=== PATIENT | male | born 1960 ===

== ENCOUNTER 2018-01-09 16:47 | Emergency (ER) | payer BC, OTHER ==
[2018-01-09 16:58] VITALS: BMI 29.8
--- NOTE | 2018-01-09 19:46 | C.PDOC ---
History Of Present Illness 57 year old male presents to the ED c/o severe left shoulder pain. 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 Patient states he occasionally feels a strain in his shoulder but usually is able to keep working. Patient states he woke yo today with severe pain of his left shoulder over the left shoulder mostly over the humeral head area. Patient reports he took Naproxen today, last one a 11:00 am with no relief. Patient worsens with movement and while laying down. Patient denies fall , direct trauma, weakness, numbness, tingling, CP, SOB. Time Seen by Provider: 01/09/18 19:03 Chief Complaint (Nursing): Upper Extremity Problem/Injury History Per: Patient History/Exam Limitations: no limitations Onset/Duration Of Symptoms: Hrs Current Symptoms Are (Timing): Still Present Quality: "Pain" Severity: Severe Exacerbating Factor(s): Movement Recent travel outside of the [place]: No Additional History Per: Patient Past Medical History Reviewed: Historical Data, Nursing Documentation, Vital Signs Vital Signs: Last Vital Signs Temp 98.5 F 01/09/18 20:09 Pulse 56 L 01/09/18 20:09 Resp 16 01/09/18 20:09 BP 179/100 H 01/09/18 20:09 Pulse Ox 99 01/09/18 20:09 - Medical History PMH: HTN Surgical History: No Surg Hx - [facility] Procedures CORONAR ARTERIOGR-2 CATH (06/24/13) LEFT HEART CARDIAC CATH (06/24/13) LT HEART ANGIOCARDIOGRAM (06/24/13) Family History: States: [place] (mother age 34), Hypertension - Social History Hx Tobacco Use: No Hx Alcohol Use: Yes Hx Substance Use: No - Immunization History Hx Tetanus Toxoid Vaccination: No Hx Influenza Vaccination: No Hx Pneumococcal Vaccination: No Review Of Systems Constitutional: Negative for: Fever, Chills Cardiovascular: Negative for: Chest Pain Respiratory: Negative for: Shortness of Breath Gastrointestinal: Negative for: Nausea, Vomiting Musculoskeletal: Positive for: Shoulder Pain. Negative for: Arm Pain Skin: Negative for: Rash Neurological: Negative for: Weakness, Numbness, Headache, Dizziness Physical Exam - Physical Exam Appears: Non-toxic Skin: Normal Color, Warm, Dry Head: Atraumatic, Normacephalic Eye(s): bilateral: Normal Inspection Neck: Normal ROM, Supple Chest: Symmetrical Cardiovascular: Rhythm Regular Respiratory: Normal Breath Sounds, No Rales, No Rhonchi, No Wheezing Gastrointestinal/Abdominal: Soft, No Tenderness, No Guarding, No Rebound Extremity: No Normal ROM (left shoulder, worse on abduction and extension), Tenderness (left shoulder humeral head area), Capillary Refill (< 2 seconds), No Swelling Extremity: Bilateral: Atraumatic Pulses: Left Radial: Normal, Right Radial: Normal Neurological/Psych: Oriented x3, Normal Speech, Normal Motor, Normal Sensation Gait: Steady ED Course And Treatment O2 Sat by Pulse Oximetry: 100 (ON RA) Pulse Ox Interpretation: Normal - Other Rad shoulder, left X-Ray: Interpreted by Me Interpretation: No evidence of fracture, + soft tissue calcium Reevaluation Time: 21:06 Reassessment Condition: Improved Medical Decision Making Medical Decision Making: Plan: * Morphine 4 mg IVP * Left shoulder X-Ray Disposition Counseled Patient/Family Regarding: Studies Performed, Diagnosis, Need For Followup, Rx Given - Disposition Disposition: HOME/ ROUTINE Disposition Time: 21:09 Condition: IMPROVED Additional Instructions: Patient advised to follow up with employer for referral to specialist and physical therapy. Prescriptions: Prednisone 50 mg PO DAILY #7 tablet Instructions: Calcific Tendonitis of the Shoulder (DC) Forms: [employer] (Kosovan), Work Excuse Print Language: LITHUANIAN - Clinical Impression Clinical Impression: Calcific tendinitis of left shoulder - Scribe Statement The provider has reviewed the documentation as recorded by the Scribsanjay Menchaca All medical record entries made by the Scribe were at my direction and personally dictated by me. I have reviewed the chart and agree that the record accurately reflects my personal performance of the history, physical exam, medical decision making, and the department course for this patient. I have also personally directed, reviewed, and agree with the discharge instructions and disposition.
[2018-01-09] MEDS ORDERED: Morphine 4 MG/ML VIAL ONE (20:27)
[2018-01-09 21:09] VITALS: O2SAT 100
[2018-01-09 21:35] VITALS: BP 168/94; PULSE 64; RESP 12; TEMP 98
--- NOTE | 2018-01-10 08:54 | RAD ---
Date of service: 01/09/2018 PROCEDURE: Radiographs of the Left Shoulder HISTORY: shoulder pain COMPARISON: No prior. FINDINGS: BONES: No fracture. JOINTS: Left shoulder arthrosis. SOFT TISSUES: Calcific rotator cuff tendinopathy and/or calcific bursitis OTHER FINDINGS: None. IMPRESSION: Calcific rotator cuff tendinopathy and/or calcific bursitis
--- NOTE | 2018-01-10 14:31 | CARD ---
APPROVED REPORT Date of service: 01/09/2018 EKG Measurement Heart [id number] <Conclusion> Normal sinus rhythm Right bundle branch block Left anterior fascicular block Bifascicular block Abnormal ECG
== END 2018-01-09 21:35 | disposition home or self-care (01) ==
LOC: C.ER 16:47
DX: M75.32 Calcific tendinitis of left shoulder (principal)
CPT/HCPCS: 73030; 93005; 96372; 99285; J2270